=== PATIENT | female | born 1935 | race Caucasian/White ===

== ENCOUNTER 2017-03-17 11:38 | Inpatient (IN) | payer OTHER ==
[~2017-03-17] VITALS: Ht 165.1 cm; Wt 58.9 kg
[~2017-03-17 11:38] MED LIST: AMBIEN5 MG PO; ATENOLOL100 MG PO; BENADRYL25 MG PO; FOSAMAX70 MG PO; LOSARTAN POTAS100 MG PO; LOSARTAN-HCTZ1 EAC2 PO; LYRICA25 MG PO; MICROZIDE12.5 M1 PO; MOTRIN600 MG PO; SIMVASTATIN20 MG PO; ST. JOSEPH ASPI81 MG PO; VITAMIN B-12250 MCG PO; VITAMIN B-6100 MG PO; VITAMIN D35000 UNIT PO
[2017-03-17] MEDS ORDERED: CALCIUM 600 WI1 EAC2 PO (12:16)
[2017-03-17] MEDS ORDERED: HYDROCHLOROTH12.5 M3 PO (12:17)
[2017-03-17 12:38] LABS: MCH 31.1 PG (29.0-34.0); MCHC 33.2 G/DL (30.0-36.0); MCV 93.6 FL (83-99); MEAN PLAT.VOLUME 10.2 uM^3 (9.5-12.4); PLATELET COUNT 181 K/uL (156-360); RBC DIS.WIDTH-CV 12.9 % (11.8-14.6); RBC DIS.WIDTH-SD 44.4 % (39-53); RED BLOOD COUNT 4.38 M/uL (3.80-5.20); WHITE BLOOD COUNT 7.5 K/uL (4.1-10.2)
[2017-03-17 12:47] LABS: CHLORIDE 102 mEq/L (99-109); POTASSIUM 4.1 mEq/L (3.7-5.4); SODIUM 136 mEq/L (136-147)
[2017-03-17 12:49] LABS: GLUCOSE 88 mg/dL (70-99)
[2017-03-17 12:50] LABS: ANION GAP 9 MEQ/L (2-14)
[2017-03-17 12:51] LABS: TOTAL BILIRUBIN 1.3 mg/dL (0.0-1.0)
[2017-03-17 12:53] LABS: ALKALINE PHOSPHATASE 55 IU/L (3-129); GFR ESTIMATE (CALCULATED) 51 mL/min/
[2017-03-17 12:54] LABS: UREA NITROGEN (BUN) 22 mg/dL (9-23)
[2017-03-17 12:56] LABS: LIPASE 28 U/L (1.0-51.0)
[2017-03-17 12:59] LABS: TROP-I INTERPRETATION NEGATIVE; TROPONIN-I < 0.01 ng/mL (0.0-0.30)
[2017-03-17 14:27] LABS: ADD MIUA? YES; BILIRUBIN NEGATIVE; BLOOD SMALL; COLOR STRAW ((YELLOW)); GLUCOSE (STRIP) NEGATIVE; KETONES 5; LEUKOCYTES TRACE; NITRITE NEGATIVE; PROTEIN (STRIP) NEGATIVE; SPECIFIC GRAVITY 1.008 (1.000-1.030); UROBILINOGEN 0.2 MG/DL (0.2-1.0)
[2017-03-17 14:34] LABS: BACTERIA NONE SEEN /HPF; EPITHELIAL CELLS RARE /HPF; MUCUS NONE SEEN /LPF; RED BLOOD CELLS 0-5 /HPF (0-5)
[2017-03-17] MEDS ORDERED: VITAMIN D31000 UNI2 PO (16:17)
[2017-03-17] MEDS ORDERED: CALCIUM600 M1 PO (16:17)
[2017-03-17 17:20] LABS: INTER. NORMALIZED RATIO 1.1; PTT 29.4 (25-32)
[2017-03-17 19:00] VITALS: BP 122/64
[2017-03-17 19:32] LABS: TROP-I INTERPRETATION NEGATIVE; TROPONIN-I < 0.01 ng/mL (0.0-0.30)
[2017-03-17 20:00] VITALS: BP 157/67
[2017-03-17 21:01] VITALS: BP 96/57
[2017-03-17 23:02] VITALS: BP 127/50
[2017-03-18] VITALS (11 sets, daily range): BP systolic 105–139; BP diastolic 45–69
[2017-03-18 00:57] LABS: TROP-I INTERPRETATION NEGATIVE; TROPONIN-I 0.01 ng/mL (0.0-0.30)
[2017-03-18 07:03] LABS: HEMATOCRIT 36.4 % (36.0-46.0); MCH 32.4 PG (29.0-34.0); MCHC 34.3 G/DL (30.0-36.0); MCV 94.3 FL (83-99); MEAN PLAT.VOLUME 10.1 uM^3 (9.5-12.4); PLATELET COUNT 146 K/uL (156-360); RBC DIS.WIDTH-CV 13.2 % (11.8-14.6); RBC DIS.WIDTH-SD 45.4 % (39-53); RED BLOOD COUNT 3.86 M/uL (3.80-5.20); WHITE BLOOD COUNT 5.6 K/uL (4.1-10.2)
[2017-03-18 08:02] LABS: ANION GAP 11 MEQ/L (2-14); CHLORIDE 107 MEQ/L (99-109); POTASSIUM 3.8 MEQ/L (3.7-5.4); SAMPLE HEMOLYSIS CHECK 0; SAMPLE ICTERIC CHECK 0; SAMPLE LIPEMIA CHECK 0; SODIUM 141 MEQ/L (136-147); TOTAL BILIRUBIN 1.1 MG/DL (0.0-1.0)
[2017-03-18 08:08] LABS: ALKALINE PHOSPHATASE 44 IU/L (3-129); GFR ESTIMATE (CALCULATED) 57 mL/min/; GLUCOSE 85 mg/dL (70-99); UREA NITROGEN (BUN) 22 mg/dL (9-23)
[2017-03-19 03:23] VITALS: BP 112/54
[2017-03-19 03:27] LABS: HEMATOCRIT 35.7 % (36.0-46.0); MCH 30.9 PG (29.0-34.0); MCHC 32.5 G/DL (30.0-36.0); MCV 94.9 FL (83-99); MEAN PLAT.VOLUME 9.9 uM^3 (9.5-12.4); PLATELET COUNT 137 K/uL (156-360); RBC DIS.WIDTH-CV 12.9 % (11.8-14.6); RBC DIS.WIDTH-SD 44.6 % (39-53); RED BLOOD COUNT 3.76 M/uL (3.80-5.20); WHITE BLOOD COUNT 5.3 K/uL (4.1-10.2)
[2017-03-19 04:03] LABS: CHLORIDE 107 mEq/L (99-109); SODIUM 139 mEq/L (136-147)
[2017-03-19 04:07] LABS: ANION GAP 7 MEQ/L (2-14)
[2017-03-19 04:12] LABS: GLUCOSE 97 mg/dL (70-99)
[2017-03-19 04:16] LABS: GFR ESTIMATE (CALCULATED) 51 mL/min/
[2017-03-19 04:17] LABS: UREA NITROGEN (BUN) 29 mg/dL (9-23)
[2017-03-19 07:48] VITALS: BP 145/68
[2017-03-19 11:55] VITALS: BP 155/56
[2017-03-19 15:00] VITALS: BP 126/55
[2017-03-19] MEDS ORDERED: ELIQUIS5 MG PO ×2 (15:24→16:38)
[2017-03-19 20:01] VITALS: BP 138/62
[2017-03-19 23:21] VITALS: BP 132/64
[2017-03-20 03:00] VITALS: BP 139/65
[2017-03-20 07:30] VITALS: BP 134/59
[2017-03-20] MEDS ORDERED: ELIQUIS5 MG PO (09:48)
== END 2017-03-20 10:51 | disposition home or self-care (01) | DRG 309 ==
LOC: EME 11:38 → 4EAST 14:58 → EDOF 14:58 → 4EAST 17:02 → EDOF 17:23 → 4EAST 20:01
PROVIDERS: Emergency Medicine; Hospitalist; Internal Medicine; Nurse Practitioner Family
DX: I48.91 Unspecified atrial fibrillation (principal); I27.82 Chronic pulmonary embolism; T17.890A Other foreign object in other parts of respiratory tract causing asphyxiation, initial encounter; I11.0 Hypertensive heart disease with heart failure; I50.9 Heart failure, unspecified; E78.5 Hyperlipidemia, unspecified; I27.2 Other secondary pulmonary hypertension; J98.11 Atelectasis; M19.90 Unspecified osteoarthritis, unspecified site; Z68.1 Body mass index [BMI] 19.9 or less, adult; Z80.3 Family history of malignant neoplasm of breast; Z82.49 Family history of ischemic heart disease and other diseases of the circulatory system; Z85.118 Personal history of other malignant neoplasm of bronchus and lung; Z87.891 Personal history of nicotine dependence; Z92.21 Personal history of antineoplastic chemotherapy; Z92.3 Personal history of irradiation; I65.29 Occlusion and stenosis of unspecified carotid artery; M54.5 Low back pain; R45.1 Restlessness and agitation; R51 Headache; J44.9 Chronic obstructive pulmonary disease, unspecified
CPT/HCPCS: 71275; 72132; 74177; 80048; 80053; 81003; 82040; 82310; 83690; 84439; 84443; 84484; 85027; 85610; 85730; 93005; 93306; 93970; 99202; 99281; 99285; J0610; J1885; J7030; J7050

== ENCOUNTER 2017-07-10 13:10 | Observation (INO) | payer OTHER ==
[~2017-07-10] VITALS: Ht 165.1 cm; Wt 55.0 kg
[~2017-07-10 13:10] MED LIST changes: +CALCIUM 500 MG1 EAC2 PO; +CALCIUM 600 WI1 EAC2 PO; +ELIQUIS5 MG PO; +HYDROCHLOROTH12.5 M3 PO; +VITAMIN D31000 UNI2 PO
[2017-07-10 13:36] LABS: HEMATOCRIT 42.3 % (36.0-46.0); MCH 30.8 PG (29.0-34.0); MCHC 32.9 G/DL (30.0-36.0); MCV 93.8 FL (83-99); MEAN PLAT.VOLUME 10.4 uM^3 (9.5-12.4); PLATELET COUNT 168 K/uL (156-360); RBC DIS.WIDTH-CV 13.4 % (11.8-14.6); RED BLOOD COUNT 4.51 M/uL (3.80-5.20); WHITE BLOOD COUNT 7.8 K/uL (4.1-10.2)
[2017-07-10 13:45] LABS: CHLORIDE 104 mEq/L (99-109); POTASSIUM 3.7 mEq/L (3.7-5.4); SODIUM 139 mEq/L (136-147)
[2017-07-10 13:46] LABS: MAGNESIUM 1.9 mg/dL (1.3-2.7)
[2017-07-10 13:47] LABS: GLUCOSE 149 mg/dL (70-99)
[2017-07-10 13:48] LABS: ANION GAP 12 MEQ/L (2-14)
[2017-07-10 13:50] LABS: GFR ESTIMATE (CALCULATED) 51 mL/min/
[2017-07-10 13:51] LABS: UREA NITROGEN (BUN) 22 mg/dL (9-23)
[2017-07-10 13:57] LABS: TROP-I INTERPRETATION NEGATIVE; TROPONIN-I 0.01 ng/mL (0.0-0.30)
[2017-07-10 14:23] LABS: INTER. NORMALIZED RATIO 1.3; PROTHROMBIN TIME 15.1 SEC (10.2-12.9)
[2017-07-10] MEDS ORDERED: ELIQUIS5 MG PO (16:08)
[2017-07-10] MEDS ORDERED: ATENOLOL50 MG PO (16:10)
[2017-07-10] MEDS ORDERED: PROLIA60 MG/1 ML SC (16:11)
[2017-07-10] MEDS ORDERED: FLUZONE HI180 MCG/08 IM (16:12)
[2017-07-10 17:12] LABS: HDL CHOLESTEROL 60 MG/DL (Desirable>=50); LDL CHOLESTEROL 70 mg/dL (Desirable<100); NON-HDL CHOLESTEROL 104 mg/dL (Desirable<160); TOTAL CHOLESTEROL 164 mg/dL (Desirable<200); TRIGLYCERIDES 168 MG/DL (Normal: <150)
[2017-07-10 17:43] LABS: Estimated Average Glucose 108 mg/dL (70-123); HEMOGLOBIN A1c (GLYCOHEMOGLOB) 5.4 % HGB (Below 5.7)
[2017-07-10 18:25] VITALS: BP 144/70
[2017-07-10 19:26] VITALS: BP 131/62
[2017-07-10 23:53] VITALS: BP 124/59
[2017-07-11 04:45] VITALS: BP 150/65
[2017-07-11 07:00] VITALS: BP 140/66
[2017-07-11 08:00] VITALS: BP 140/66
[2017-07-11 11:20] VITALS: BP 130/60
== END 2017-07-11 17:01 | disposition home or self-care (01) ==
LOC: EME 13:10 → EDOF 15:55 → 5WEST 15:55 → ENRESERV 16:02 → 5WEST 18:12
PROVIDERS: Emergency Medicine; Physician Assistant Medical
DX: G45.9 Transient cerebral ischemic attack, unspecified (principal); I48.0 Paroxysmal atrial fibrillation; I11.9 Hypertensive heart disease without heart failure; I65.29 Occlusion and stenosis of unspecified carotid artery; M81.0 Age-related osteoporosis without current pathological fracture; I25.10 Atherosclerotic heart disease of native coronary artery without angina pectoris; E78.5 Hyperlipidemia, unspecified; Z85.118 Personal history of other malignant neoplasm of bronchus and lung; Z92.21 Personal history of antineoplastic chemotherapy; Z92.3 Personal history of irradiation; Z87.891 Personal history of nicotine dependence; Z79.01 Long term (current) use of anticoagulants; Z86.711 Personal history of pulmonary embolism; Z79.82 Long term (current) use of aspirin; I27.20 Pulmonary hypertension, unspecified
CPT/HCPCS: 70450; 71020; 80048; 80061; 83036; 83735; 84484; 85027; 85610; 93005; 99281; 99284; G0378; J7040

== ENCOUNTER 2017-09-13 11:14 | Inpatient (IN) | payer OTHER ==
[~2017-09-13] VITALS: Ht 165.1 cm; Wt 52.1 kg
[~2017-09-13 11:14] MED LIST changes: +ATENOLOL50 MG PO; +FLUZONE HI180 MCG/08 IM; +PROLIA60 MG/1 ML SC
[2017-09-13 12:42] LABS: BASOPHIL (%) 0.4 % (0-1); EOSINOPHIL (%) 0.2 % (0-5); HEMATOCRIT 37.8 % (36.0-46.0); HEMOGLOBIN 12.5 G/DL (11.9-15.5); IMMATURE GRANULOCYTE (%) 0.5 % (0.0-0.7); LYMPHOCYTE (%) 19.1 % (15-42); LYMPHOCYTE COUNT 1.5 K/uL (1.0-2.8); MCH 31.1 PG (29.0-34.0); MCHC 33.1 G/DL (30.0-36.0); MONOCYTE (%) 8.4 % (3-12); MONOCYTE COUNT 0.7 K/uL (0-0.8); NEUTROPHIL (%) 71.4 % (45-76); NEUTROPHIL COUNT 5.7 K/uL (1.8-6.4); PLATELET COUNT 131 K/uL (156-360); RBC DIS.WIDTH-CV 13.7 % (11.8-14.6); RBC DIS.WIDTH-SD 47.2 % (39-53); RED BLOOD COUNT 4.02 M/uL (3.80-5.20)
[2017-09-13 12:51] LABS: ALBUMIN 3.8 g/dL (3.2-4.8)
[2017-09-13 12:52] LABS: CHLORIDE 101 mEq/L (99-109); SODIUM 135 mEq/L (136-147)
[2017-09-13 12:54] LABS: GLUCOSE 93 mg/dL (70-99); TOTAL PROTEIN 7.3 g/dL (6.4-8.3)
[2017-09-13 12:56] LABS: TOTAL BILIRUBIN 1.6 mg/dL (0.0-1.0)
[2017-09-13 12:57] LABS: ALKALINE PHOSPHATASE 51 IU/L (3-129)
[2017-09-13 12:58] LABS: GFR ESTIMATE (CALCULATED) 57 mL/min/
[2017-09-13 12:59] LABS: AST (GOT) 35 IU/L (2-34); UREA NITROGEN (BUN) 19 mg/dL (9-23)
[2017-09-13 13:00] LABS: ALT (GPT) 23 IU/L (3-49)
[2017-09-13 13:03] LABS: TROP-I INTERPRETATION NEGATIVE; TROPONIN-I 0.02 ng/mL (0.0-0.30)
[2017-09-13 13:07] LABS: INTER. NORMALIZED RATIO ND
[2017-09-13 13:39] LABS: INTER. NORMALIZED RATIO 1.5
[2017-09-13 20:15] VITALS: BP 129/92
[2017-09-14] VITALS (9 sets, daily range): BP systolic 94–139; BP diastolic 54–78
[2017-09-14 07:26] LABS: HEMOGLOBIN 11.5 G/DL (11.9-15.5); MCH 30.6 PG (29.0-34.0); MCHC 32.9 G/DL (30.0-36.0); MCV 93.1 FL (83-99); PLATELET COUNT 124 K/uL (156-360); RBC DIS.WIDTH-CV 13.8 % (11.8-14.6); RED BLOOD COUNT 3.76 M/uL (3.80-5.20); WHITE BLOOD COUNT 9.6 K/uL (4.1-10.2)
[2017-09-14 07:53] LABS: CHLORIDE 106 MEQ/L (99-109); CREATININE 0.9 MG/DL (0.6-1.3); GFR ESTIMATE (CALCULATED) > 59 mL/min/; MAGNESIUM 1.5 mg/dl (1.3-2.7); POTASSIUM 3.8 MEQ/L (3.7-5.4); SODIUM 139 MEQ/L (136-147); UREA NITROGEN (BUN) 20 mg/dL (9-23)
[2017-09-14 07:54] LABS: GLUCOSE 140 mg/dL (70-99)
[2017-09-14 09:50] LABS: THYROTROPIN (TSH) 1.8 MIU/L (0.4-5.5)
[2017-09-15] VITALS (7 sets, daily range): BP systolic 100–123; BP diastolic 51–64
[2017-09-16] VITALS (8 sets, daily range): BP systolic 93–114; BP diastolic 53–78
[2017-09-16 01:59] LABS: BASOPHIL (%) 0.3 % (0-1); EOSINOPHIL (%) 0.2 % (0-5); HEMATOCRIT 34.4 % (36.0-46.0); HEMOGLOBIN 11.8 G/DL (11.9-15.5); IMMATURE GRANULOCYTE (%) 0.4 % (0.0-0.7); LYMPHOCYTE (%) 10.3 % (15-42); LYMPHOCYTE COUNT 1.2 K/uL (1.0-2.8); MCH 31.4 PG (29.0-34.0); MCHC 34.3 G/DL (30.0-36.0); MCV 91.5 FL (83-99); MONOCYTE (%) 8.4 % (3-12); NEUTROPHIL (%) 80.4 % (45-76); NEUTROPHIL COUNT 9.6 K/uL (1.8-6.4); PLATELET COUNT 156 K/uL (156-360); RBC DIS.WIDTH-CV 13.4 % (11.8-14.6); RBC DIS.WIDTH-SD 45.8 % (39-53); RED BLOOD COUNT 3.76 M/uL (3.80-5.20); WHITE BLOOD COUNT 11.9 K/uL (4.1-10.2)
[2017-09-16 02:24] LABS: CHLORIDE 107 mEq/L (99-109); SODIUM 136 mEq/L (136-147)
[2017-09-16 02:25] LABS: GLUCOSE 142 mg/dL (70-99)
[2017-09-16 02:29] LABS: CREATININE 0.9 mg/dL (0.6-1.3); GFR ESTIMATE (CALCULATED) > 59 mL/min/
[2017-09-16 02:30] LABS: UREA NITROGEN (BUN) 20 mg/dL (9-23)
[2017-09-16 05:32] LABS: APPEARANCE SL.HAZY ((CLEAR)); BILIRUBIN NEGATIVE; BLOOD MODERATE; COLOR AMBER ((YELLOW)); GLUCOSE (STRIP) NEGATIVE; KETONES NEGATIVE; LEUKOCYTES NEGATIVE; NITRITE NEGATIVE; PROTEIN (STRIP) 100; SPECIFIC GRAVITY 1.033 (1.000-1.030)
[2017-09-16 06:03] LABS: BACTERIA NONE SEEN /HPF; EPITHELIAL CELLS RARE /HPF; MUCUS TRACE /LPF; WHITE BLOOD CELLS 0-5 /HPF (0-5)
[2017-09-17 04:48] VITALS: BP 103/50
[2017-09-17 07:24] VITALS: BP 103/55
[2017-09-17 10:03] LABS: BASOPHIL (%) 0.2 % (0-1); EOSINOPHIL (%) 0.4 % (0-5); EOSINOPHIL COUNT 0.1 K/uL (0-0.3); HEMATOCRIT 37.1 % (36.0-46.0); HEMOGLOBIN 11.9 G/DL (11.9-15.5); IMMATURE GRANULOCYTE (%) 0.6 % (0.0-0.7); LYMPHOCYTE (%) 11.5 % (15-42); LYMPHOCYTE COUNT 1.9 K/uL (1.0-2.8); MCH 31.1 PG (29.0-34.0); MCHC 32.1 G/DL (30.0-36.0); MONOCYTE (%) 7.9 % (3-12); MONOCYTE COUNT 1.3 K/uL (0-0.8); NEUTROPHIL (%) 79.4 % (45-76); NEUTROPHIL COUNT 13.2 K/uL (1.8-6.4); RBC DIS.WIDTH-CV 13.9 % (11.8-14.6); RBC DIS.WIDTH-SD 49.1 % (39-53); RED BLOOD COUNT 3.83 M/uL (3.80-5.20); WHITE BLOOD COUNT 16.6 K/uL (4.1-10.2)
[2017-09-17 10:13] LABS: MCV 96.9 FL (83-99); PLATELET COUNT 220 K/uL (156-360)
[2017-09-17 11:10] LABS: CHLORIDE 108 MEQ/L (99-109); CREATININE 0.9 MG/DL (0.6-1.3); GFR ESTIMATE (CALCULATED) > 59 mL/min/; GLUCOSE 160 mg/dL (70-99); SODIUM 141 MEQ/L (136-147); UREA NITROGEN (BUN) 21 mg/dL (9-23)
[2017-09-17 11:15] LABS: MAGNESIUM 1.8 mg/dl (1.3-2.7); POTASSIUM 4.9 MEQ/L (3.7-5.4)
[2017-09-17 11:22] VITALS: BP 93/50
[2017-09-17 11:55] LABS: APPEARANCE SL.HAZY ((CLEAR)); BILIRUBIN NEGATIVE; BLOOD SMALL; COLOR YELLOW ((YELLOW)); GLUCOSE (STRIP) NEGATIVE; KETONES NEGATIVE; LEUKOCYTES NEGATIVE; NITRITE NEGATIVE; PROTEIN (STRIP) 100; SPECIFIC GRAVITY 1.029 (1.000-1.030)
[2017-09-17 12:13] LABS: BACTERIA NONE SEEN /HPF; EPITHELIAL CELLS RARE /HPF; HYALINE CASTS 0-5 /LPF; MUCUS TRACE /LPF; RED BLOOD CELLS 0-5 /HPF (0-5); UCUL ADDED? NO; WHITE BLOOD CELLS 0-5 /HPF (0-5)
[2017-09-17 14:54] VITALS: BP 102/59
[2017-09-17 19:44] VITALS: BP 115/65
[2017-09-18] VITALS (7 sets, daily range): BP systolic 111–169; BP diastolic 57–77
[2017-09-18 06:07] LABS: HEMATOCRIT 29.1 % (36.0-46.0); MCH 30.5 PG (29.0-34.0); MCV 95.4 FL (83-99); PLATELET COUNT 187 K/uL (156-360); RBC DIS.WIDTH-CV 13.8 % (11.8-14.6); RBC DIS.WIDTH-SD 48.8 % (39-53); WHITE BLOOD COUNT 10.4 K/uL (4.1-10.2)
[2017-09-18 06:08] LABS: HEMOGLOBIN 9.3 G/DL (11.9-15.5); RED BLOOD COUNT 3.05 M/uL (3.80-5.20)
[2017-09-18 06:22] LABS: CHLORIDE 110 MEQ/L (99-109); CREATININE 0.9 MG/DL (0.6-1.3); GFR ESTIMATE (CALCULATED) > 59 mL/min/; SODIUM 141 MEQ/L (136-147); UREA NITROGEN (BUN) 19 mg/dL (9-23)
[2017-09-18 06:23] LABS: GLUCOSE 111 mg/dL (70-99); POTASSIUM 3.8 MEQ/L (3.7-5.4)
[2017-09-18 20:24] LABS: BASE EXCESS -6.7 mEq/L (-3 to +3); BICARBONATE 18.5 mEq/L (22-26); CARBOXY HGB 1.7 % (0-5); METHEMOGLOBIN 1.3 % (0-1.5); PCO2 35 mm Hg (35-45); PO2 59 mm Hg (80-100); pH 7.33 (7.35-7.45)
[2017-09-18 20:25] LABS: COMMENTS - BLOOD GASES A+C+; DEVICE NC; O2 FLOW 2 L/MIN; SITE LR; TOTAL RESP RATE 30 resp/min
[2017-09-19 04:11] VITALS: BP 150/68
[2017-09-19 07:08] LABS: BASOPHIL (%) 0.1 % (0-1); EOSINOPHIL (%) 0 % (0-5); HEMOGLOBIN 10.5 G/DL (11.9-15.5); IMMATURE GRANULOCYTE (%) 0.9 % (0.0-0.7); LYMPHOCYTE (%) 8.2 % (15-42); LYMPHOCYTE COUNT 0.7 K/uL (1.0-2.8); MCH 29.6 PG (29.0-34.0); MCHC 31.8 G/DL (30.0-36.0); MONOCYTE (%) 1.5 % (3-12); MONOCYTE COUNT 0.1 K/uL (0-0.8); NEUTROPHIL (%) 89.3 % (45-76); NEUTROPHIL COUNT 7.2 K/uL (1.8-6.4); RBC DIS.WIDTH-CV 13.6 % (11.8-14.6); RBC DIS.WIDTH-SD 46.6 % (39-53); RED BLOOD COUNT 3.55 M/uL (3.80-5.20)
[2017-09-19 07:17] LABS: PLATELET COUNT 256 K/uL (156-360)
[2017-09-19 07:37] LABS: CHLORIDE 108 MEQ/L (99-109); CREATININE 0.7 MG/DL (0.6-1.3); GFR ESTIMATE (CALCULATED) > 59 mL/min/; GLUCOSE 160 mg/dL (70-99); POTASSIUM 3.6 MEQ/L (3.7-5.4); SODIUM 143 MEQ/L (136-147); UREA NITROGEN (BUN) 19 mg/dL (9-23)
[2017-09-19 08:00] VITALS: BP 127/65
[2017-09-19 11:28] VITALS: BP 141/78
[2017-09-19 16:00] VITALS: BP 120/63
[2017-09-19 19:30] VITALS: BP 136/60
[2017-09-19 23:31] VITALS: BP 97/56
[2017-09-20 03:59] VITALS: BP 120/81
[2017-09-20 07:01] LABS: BASOPHIL (%) 0.1 % (0-1); EOSINOPHIL (%) 0 % (0-5); HEMATOCRIT 34.7 % (36.0-46.0); HEMOGLOBIN 11.3 G/DL (11.9-15.5); IMMATURE GRANULOCYTE (%) 0.6 % (0.0-0.7); LYMPHOCYTE (%) 6.3 % (15-42); LYMPHOCYTE COUNT 0.8 K/uL (1.0-2.8); MCH 30.4 PG (29.0-34.0); MCHC 32.6 G/DL (30.0-36.0); MCV 93.3 FL (83-99); MONOCYTE (%) 1.9 % (3-12); MONOCYTE COUNT 0.2 K/uL (0-0.8); NEUTROPHIL (%) 91.1 % (45-76); NEUTROPHIL COUNT 11.4 K/uL (1.8-6.4); RBC DIS.WIDTH-CV 13.7 % (11.8-14.6); RBC DIS.WIDTH-SD 46.7 % (39-53); RED BLOOD COUNT 3.72 M/uL (3.80-5.20); WHITE BLOOD COUNT 12.5 K/uL (4.1-10.2)
[2017-09-20 07:11] LABS: PLATELET COUNT 339 K/uL (156-360)
[2017-09-20 07:26] LABS: CHLORIDE 109 MEQ/L (99-109); CREATININE 0.9 MG/DL (0.6-1.3); GFR ESTIMATE (CALCULATED) > 59 mL/min/; GLUCOSE 161 mg/dL (70-99); POTASSIUM 3.6 MEQ/L (3.7-5.4); SODIUM 143 MEQ/L (136-147)
[2017-09-20 07:27] LABS: UREA NITROGEN (BUN) 31 mg/dL (9-23)
[2017-09-20 08:00] VITALS: BP 129/71
[2017-09-20 08:04] LABS: MAGNESIUM 1.6 mg/dl (1.3-2.7)
[2017-09-20 11:15] VITALS: BP 112/69
[2017-09-20 19:41] VITALS: BP 97/57
[2017-09-20 23:58] VITALS: BP 101/57; BP 123/78
[2017-09-21 05:43] VITALS: BP 134/75
[2017-09-21 06:37] LABS: CHLORIDE 110 MEQ/L (99-109); CREATININE 1.1 MG/DL (0.6-1.3); GFR ESTIMATE (CALCULATED) 51 mL/min/; GLUCOSE 136 mg/dL (70-99); SODIUM 141 MEQ/L (136-147); UREA NITROGEN (BUN) 43 mg/dL (9-23)
[2017-09-21 06:39] LABS: MAGNESIUM 2.3 mg/dl (1.3-2.7); POTASSIUM 4.4 MEQ/L (3.7-5.4)
[2017-09-21 07:07] LABS: BASOPHIL (%) 0.1 % (0-1); EOSINOPHIL (%) 0 % (0-5); HEMOGLOBIN 9.4 G/DL (11.9-15.5); IMMATURE GRANULOCYTE (%) 0.8 % (0.0-0.7); LYMPHOCYTE (%) 7.9 % (15-42); MCH 29.5 PG (29.0-34.0); MCHC 31.3 G/DL (30.0-36.0); MONOCYTE (%) 3.7 % (3-12); MONOCYTE COUNT 0.5 K/uL (0-0.8); NEUTROPHIL (%) 87.5 % (45-76); NEUTROPHIL COUNT 10.9 K/uL (1.8-6.4); PLATELET COUNT 311 K/uL (156-360); RBC DIS.WIDTH-SD 47.5 % (39-53); RED BLOOD COUNT 3.19 M/uL (3.80-5.20); WHITE BLOOD COUNT 12.5 K/uL (4.1-10.2)
[2017-09-21 07:34] VITALS: BP 123/56
[2017-09-21] MEDS ORDERED: ELIQUIS2.5 MG PO (09:22)
[2017-09-21] MEDS ORDERED: CARDIZEM60 MG PO (14:01)
== END 2017-09-21 15:30 | disposition home or self-care (01) | DRG 199 ==
LOC: EME 11:14 → CANRESERV 16:13 → ENRESERV 16:13 → 4EAST 17:01 → EDOF 17:01 → ENRESERV 17:03 → 3EAST 19:22 → 4EAST 09-14 07:26 → ENRESERV 09-14 07:27 → 4EAST 09-14 07:35 → CANRESERV 09-15 10:19 → ENRESERV 09-15 10:19 → CANRESERV 09-19 21:17 → ENRESERV 09-19 21:17 → CANRESERV 09-20 18:45 → ENRESERV 09-20 18:45 → 4EAST 09-21 15:30
PROVIDERS: Emergency Medicine; Hospitalist; Internal Medicine; Physician Assistant
PROC: 0W9930Z Drainage of Right Pleural Cavity with Drainage Device, Percutaneous Approach (ICD-10-PCS; principal; 2017-09-13)
DX: J93.83 Other pneumothorax (principal); J96.01 Acute respiratory failure with hypoxia; I26.99 Other pulmonary embolism without acute cor pulmonale; J18.9 Pneumonia, unspecified organism; I48.0 Paroxysmal atrial fibrillation; C34.90 Malignant neoplasm of unspecified part of unspecified bronchus or lung; Z68.1 Body mass index [BMI] 19.9 or less, adult; I11.0 Hypertensive heart disease with heart failure; J44.0 Chronic obstructive pulmonary disease with (acute) lower respiratory infection; E78.5 Hyperlipidemia, unspecified; I77.1 Stricture of artery; I50.9 Heart failure, unspecified; T45.1X5A Adverse effect of antineoplastic and immunosuppressive drugs, initial encounter; I27.20 Pulmonary hypertension, unspecified; I25.10 Atherosclerotic heart disease of native coronary artery without angina pectoris; G62.0 Drug-induced polyneuropathy; J98.11 Atelectasis; M81.0 Age-related osteoporosis without current pathological fracture; Z92.3 Personal history of irradiation; Z91.14 Patient's other noncompliance with medication regimen; Z79.899 Other long term (current) drug therapy; Z85.118 Personal history of other malignant neoplasm of bronchus and lung; Z87.891 Personal history of nicotine dependence; Z79.01 Long term (current) use of anticoagulants; Z86.711 Personal history of pulmonary embolism; Z80.3 Family history of malignant neoplasm of breast; Z82.49 Family history of ischemic heart disease and other diseases of the circulatory system
CPT/HCPCS: 36600; 49405; 71010; 71020; 71046; 80048; 80053; 81003; 82803; 82948; 83605; 83735; 84443; 84484; 85025; 85025 91; 85027; 85610; 85730; 87040; 87502; 93005; 94799; 99281; 99285; C1729; C1769; J0456; J0692; J0696; J1160; J1940; J2405; J2930; J3010; J3370; J3475; J7030; J7050

== ENCOUNTER 2017-09-22 20:30 | Inpatient (IN) | payer OTHER ==
[~2017-09-22] VITALS: Ht 165.1 cm; Wt 52.7 kg
[~2017-09-22 20:30] MED LIST changes: +CARDIZEM60 MG PO; +ELIQUIS2.5 MG PO
[2017-09-22 21:03] LABS: HEMATOCRIT 34.1 % (36.0-46.0); HEMOGLOBIN 11.3 G/DL (11.9-15.5); MCH 30.9 PG (29.0-34.0); MCHC 33.1 G/DL (30.0-36.0); MCV 93.2 FL (83-99); NRBC (%) 0.1 /100 WBC (0-0); PLATELET COUNT 362 K/uL (156-360); RBC DIS.WIDTH-CV 13.7 % (11.8-14.6); RBC DIS.WIDTH-SD 47.5 % (39-53); RED BLOOD COUNT 3.66 M/uL (3.80-5.20); WHITE BLOOD COUNT 13.7 K/uL (4.1-10.2)
[2017-09-22 21:27] LABS: CHLORIDE 112 mEq/L (99-109); POTASSIUM 4.2 mEq/L (3.7-5.4); SODIUM 142 mEq/L (136-147)
[2017-09-22 21:28] LABS: GLUCOSE 112 mg/dL (70-99)
[2017-09-22 21:32] LABS: CREATININE 0.8 mg/dL (0.6-1.3); GFR ESTIMATE (CALCULATED) > 59 mL/min/
[2017-09-22 21:33] LABS: UREA NITROGEN (BUN) 34 mg/dL (9-23)
[2017-09-22 21:38] LABS: TROP-I INTERPRETATION NEGATIVE; TROPONIN-I 0.02 ng/mL (0.0-0.30)
[2017-09-23 12:55] LABS: APPEARANCE CLEAR ((CLEAR)); BILIRUBIN NEGATIVE; BLOOD NEGATIVE; COLOR COLORLESS ((YELLOW)); GLUCOSE (STRIP) NEGATIVE; KETONES NEGATIVE; LEUKOCYTES NEGATIVE; NITRITE NEGATIVE; PROTEIN (STRIP) NEGATIVE; SPECIFIC GRAVITY 1.012 (1.000-1.030); UROBILINOGEN 0.2 MG/DL (0.2-1.0)
[2017-09-23 19:20] VITALS: BP 127/58
[2017-09-23 23:37] VITALS: BP 113/65
[2017-09-24 04:15] VITALS: BP 105/68
[2017-09-24 08:00] VITALS: BP 113/53
[2017-09-24 10:56] LABS: BASOPHIL (%) 0.2 % (0-1); EOSINOPHIL (%) 1.5 % (0-5); EOSINOPHIL COUNT 0.1 K/uL (0-0.3); HEMATOCRIT 36.7 % (36.0-46.0); HEMOGLOBIN 11.7 G/DL (11.9-15.5); IMMATURE GRANULOCYTE (%) 0.9 % (0.0-0.7); LYMPHOCYTE (%) 13.5 % (15-42); LYMPHOCYTE COUNT 1.2 K/uL (1.0-2.8); MCH 29.9 PG (29.0-34.0); MCHC 31.9 G/DL (30.0-36.0); MCV 93.9 FL (83-99); MONOCYTE (%) 3.2 % (3-12); MONOCYTE COUNT 0.3 K/uL (0-0.8); NEUTROPHIL (%) 80.7 % (45-76); NEUTROPHIL COUNT 6.8 K/uL (1.8-6.4); PLATELET COUNT 341 K/uL (156-360); RBC DIS.WIDTH-CV 13.5 % (11.8-14.6); RBC DIS.WIDTH-SD 45.9 % (39-53); RED BLOOD COUNT 3.91 M/uL (3.80-5.20); WHITE BLOOD COUNT 8.5 K/uL (4.1-10.2)
[2017-09-24 11:33] LABS: CHLORIDE 106 MEQ/L (99-109); CREATININE 0.8 MG/DL (0.6-1.3); GFR ESTIMATE (CALCULATED) > 59 mL/min/; GLUCOSE 167 mg/dL (70-99); POTASSIUM 4.1 MEQ/L (3.7-5.4); SODIUM 140 MEQ/L (136-147); UREA NITROGEN (BUN) 26 mg/dL (9-23)
[2017-09-24 12:00] VITALS: BP 119/66
[2017-09-24 17:06] VITALS: BP 137/55
[2017-09-24 19:39] VITALS: BP 113/59
[2017-09-24 23:45] VITALS: BP 104/72
[2017-09-25 04:28] VITALS: BP 95/50
[2017-09-25 05:57] LABS: BASOPHIL (%) 0.3 % (0-1); EOSINOPHIL (%) 1.8 % (0-5); EOSINOPHIL COUNT 0.2 K/uL (0-0.3); HEMATOCRIT 37.9 % (36.0-46.0); HEMOGLOBIN 12.1 G/DL (11.9-15.5); IMMATURE GRANULOCYTE (%) 1.2 % (0.0-0.7); LYMPHOCYTE COUNT 2.1 K/uL (1.0-2.8); MCH 30.3 PG (29.0-34.0); MCHC 31.9 G/DL (30.0-36.0); MONOCYTE (%) 6.4 % (3-12); MONOCYTE COUNT 0.8 K/uL (0-0.8); NEUTROPHIL (%) 72.3 % (45-76); NEUTROPHIL COUNT 8.4 K/uL (1.8-6.4); PLATELET COUNT 331 K/uL (156-360); RBC DIS.WIDTH-CV 13.8 % (11.8-14.6); RBC DIS.WIDTH-SD 47.6 % (39-53); RED BLOOD COUNT 3.99 M/uL (3.80-5.20); WHITE BLOOD COUNT 11.6 K/uL (4.1-10.2)
[2017-09-25 06:21] LABS: CHLORIDE 104 MEQ/L (99-109); CREATININE 0.9 MG/DL (0.6-1.3); GFR ESTIMATE (CALCULATED) > 59 mL/min/; POTASSIUM 4.2 MEQ/L (3.7-5.4); SODIUM 141 MEQ/L (136-147); UREA NITROGEN (BUN) 25 mg/dL (9-23)
[2017-09-25 06:22] LABS: GLUCOSE 94 mg/dL (70-99)
[2017-09-25 06:42] VITALS: BP 122/71
[2017-09-25 09:40] VITALS: BP 115/53
[2017-09-25 13:05] VITALS: BP 103/50
[2017-09-25 16:49] VITALS: BP 105/55
[2017-09-25 18:37] VITALS: BP 105/60
[2017-09-26 00:49] VITALS: BP 93/59
[2017-09-26 04:42] VITALS: BP 111/53
[2017-09-26 08:08] VITALS: BP 118/57
[2017-09-26 11:28] VITALS: BP 120/60
[2017-09-26] MEDS ORDERED: CARDIZEM CD,CA180 MG PO (11:39)
[2017-09-26] MEDS ORDERED: FLOVENT 11120 INHALA IH (11:40)
[2017-09-26] MEDS ORDERED: SPIRIVA RESPIMAT4 GM IH (11:40)
[2017-09-26] MEDS ORDERED: LEVAQUIN750 MG PO (11:41)
[2017-09-26] MEDS ORDERED: ZOCOR20 MG PO (11:55)
== END 2017-09-26 12:30 | disposition home or self-care (01) | DRG 193 ==
LOC: EME → EDBD 20:30 → 4EAST 09-23 04:04 → EDOF 09-23 04:04 → ENRESERV 09-23 04:06 → 4EAST 09-23 19:18 → ENRESERV 09-25 15:58 → 4SOUTH 09-25 18:11
PROVIDERS: Internal Medicine; Internal Medicine Pulmonary Disease; Physician Assistant
DX: J18.9 Pneumonia, unspecified organism (principal); I50.33 Acute on chronic diastolic (congestive) heart failure; J44.0 Chronic obstructive pulmonary disease with (acute) lower respiratory infection; J44.1 Chronic obstructive pulmonary disease with (acute) exacerbation; J98.11 Atelectasis; Z68.1 Body mass index [BMI] 19.9 or less, adult; J90 Pleural effusion, not elsewhere classified; I48.0 Paroxysmal atrial fibrillation; I27.20 Pulmonary hypertension, unspecified; M81.0 Age-related osteoporosis without current pathological fracture; I11.0 Hypertensive heart disease with heart failure; E78.5 Hyperlipidemia, unspecified; R06.89 Other abnormalities of breathing; Z79.52 Long term (current) use of systemic steroids; Z79.01 Long term (current) use of anticoagulants; Z92.3 Personal history of irradiation; Z92.21 Personal history of antineoplastic chemotherapy; Z87.891 Personal history of nicotine dependence; Z85.118 Personal history of other malignant neoplasm of bronchus and lung; Z86.711 Personal history of pulmonary embolism; Z82.49 Family history of ischemic heart disease and other diseases of the circulatory system; Z80.3 Family history of malignant neoplasm of breast
CPT/HCPCS: 71045; 71046; 71275; 80048; 81003; 83605; 83880; 84484; 85025; 85027; 87040; 87502; 87641; 93005; 93306; 94640; 94640 76; 99281; 99285; J0456; J0692; J1940; J3370

== ENCOUNTER → 2017-10-09 | Outpatient (CLI) | payer OTHER ==
[~2017-10-09] MED LIST changes: +CARDIZEM CD,CA180 MG PO; +DILTIAZEM 24HR240 MG PO; +FLOVENT 11120 INHALA IH; +LEVAQUIN750 MG PO; +SPIRIVA RESPIMAT4 GM IH; +ZOCOR20 MG PO
== END | disposition home or self-care (01) ==
DX: R13.12 Dysphagia, oropharyngeal phase (principal); Z87.01 Personal history of pneumonia (recurrent); Z85.118 Personal history of other malignant neoplasm of bronchus and lung
CPT/HCPCS: 92611 GN; G8996 GN CH; G8997 GN CH; G9158 GN CH

== ENCOUNTER 2017-11-02 08:47 | Inpatient (IN) | payer OTHER ==
[~2017-11-02] VITALS: Ht 165.1 cm; Wt 50.9 kg
[~2017-11-02 08:47] MED LIST changes: -DILTIAZEM 24HR240 MG PO
[2017-11-02 09:52] LABS: HEMATOCRIT 41.5 % (36.0-46.0); MCH 31.6 PG (29.0-34.0); MCHC 33.7 G/DL (30.0-36.0); MCV 93.7 FL (83-99); PLATELET COUNT 201 K/uL (156-360); RBC DIS.WIDTH-CV 14.3 % (11.8-14.6); RBC DIS.WIDTH-SD 49.3 % (39-53); RED BLOOD COUNT 4.43 M/uL (3.80-5.20); WHITE BLOOD COUNT 5.7 K/uL (4.1-10.2)
[2017-11-02 10:13] LABS: TROP-I INTERPRETATION NEGATIVE; TROPONIN-I 0.02 ng/mL (0.0-0.30)
[2017-11-02 10:19] LABS: CHLORIDE 103 MEQ/L (99-109); POTASSIUM 4.1 MEQ/L (3.7-5.4); SODIUM 139 MEQ/L (136-147)
[2017-11-02 10:24] LABS: CREATININE 0.9 MG/DL (0.6-1.3); GFR ESTIMATE (CALCULATED) > 59 mL/min/; GLUCOSE 97 mg/dL (70-99); UREA NITROGEN (BUN) 17 mg/dL (9-23)
[2017-11-02 13:57] LABS: THYROTROPIN (TSH) 1.2 MIU/L (0.4-5.5)
[2017-11-02 14:12] VITALS: BP 107/57
[2017-11-02 16:21] LABS: TROP-I INTERPRETATION NEGATIVE; TROPONIN-I 0.01 ng/mL (0.0-0.30)
[2017-11-02 16:47] VITALS: BP 139/63
[2017-11-02 19:52] VITALS: BP 107/51
[2017-11-03] VITALS (7 sets, daily range): BP systolic 101–160; BP diastolic 54–76
[2017-11-03 06:18] LABS: HEMATOCRIT 36.9 % (36.0-46.0); MCH 30.1 PG (29.0-34.0); MCHC 31.7 G/DL (30.0-36.0); MCV 94.9 FL (83-99); PLATELET COUNT 187 K/uL (156-360); RBC DIS.WIDTH-CV 14.6 % (11.8-14.6); RBC DIS.WIDTH-SD 50.4 % (39-53); RED BLOOD COUNT 3.89 M/uL (3.80-5.20); WHITE BLOOD COUNT 4.4 K/uL (4.1-10.2)
[2017-11-03 06:19] LABS: HEMOGLOBIN 11.7 G/DL (11.9-15.5)
[2017-11-03 06:42] LABS: CHLORIDE 109 MEQ/L (99-109); GFR ESTIMATE (CALCULATED) 56 mL/min/; GLUCOSE 88 mg/dL (70-99); POTASSIUM 4.2 MEQ/L (3.7-5.4); SODIUM 142 MEQ/L (136-147); UREA NITROGEN (BUN) 18 mg/dL (9-23)
[2017-11-03 06:43] LABS: ALBUMIN 3.5 G/DL (3.2-4.8); ALKALINE PHOSPHATASE 40 IU/L (3-129); ALT (GPT) 12 IU/L (3-49); AST (GOT) 19 IU/L (2-34); LACTATE DEHYDROGENASE 146 IU/L (20-246); TOTAL BILIRUBIN 0.8 MG/DL (0.0-1.0); TOTAL PROTEIN 5.7 G/DL (6.4-8.3)
[2017-11-04 03:54] VITALS: BP 114/53
[2017-11-04 07:24] VITALS: BP 113/54
[2017-11-04 12:03] VITALS: BP 120/56
[2017-11-04] MEDS ORDERED: DILTIAZEM 24HR240 MG PO ×2 (16:42→18:17)
[2017-11-04] MEDS ORDERED: ATENOLOL50 MG PO ×2 (16:42→18:18)
[2017-11-04 16:48] VITALS: BP 134/63
== END 2017-11-04 18:46 | disposition home or self-care (01) | DRG 309 ==
LOC: EME 08:47 → ENRESERV 12:02 → 4EAST 12:03 → EDOF 12:03 → ENRESERV 12:10 → 4EAST 13:42 → ENPENDDIS 11-04 → 4EAST 11-04 18:46
PROVIDERS: Emergency Medicine; Internal Medicine
DX: I48.0 Paroxysmal atrial fibrillation (principal); J81.1 Chronic pulmonary edema; R55 Syncope and collapse; I27.20 Pulmonary hypertension, unspecified; I10 Essential (primary) hypertension; E78.5 Hyperlipidemia, unspecified; M81.0 Age-related osteoporosis without current pathological fracture; Z79.01 Long term (current) use of anticoagulants; Z85.118 Personal history of other malignant neoplasm of bronchus and lung; Z86.711 Personal history of pulmonary embolism; Z86.73 Personal history of transient ischemic attack (TIA), and cerebral infarction without residual deficits; Z87.891 Personal history of nicotine dependence; Z92.21 Personal history of antineoplastic chemotherapy; Z92.3 Personal history of irradiation; Z91.81 History of falling; Z87.01 Personal history of pneumonia (recurrent)
CPT/HCPCS: 70450; 71046; 71110; 80048; 80053; 83615; 84443; 84484; 85027; 93005; 99281; 99285; J7050